=== PATIENT | male | born 1965 | race Caucasian/White ===

== ENCOUNTER 2021-07-19 22:24 | Emergency (ER) | payer BC ==
[~2021-07-19] VITALS: Ht 185.4 cm; Wt 86.2 kg
[2021-07-19] MEDS ORDERED: CLON0.1T PO (23:25)
[2021-07-19 23:32] LABS: *BILIRUBIN,URIN NEGATIVE (NEGATIVE); *BLOOD, URINE NEGATIVE (NEGATIVE); *CLARITY,URINE CLEAR (CLEAR); *COLOR,URINE YELLOW (YELLOW); *KETONES,URINE NEGATIVE (NEGATIVE); *UROBILINOGEN,URINE 0.2 E.U./dl (NORMAL); LEUKOCYTE ESTERASE ,URINE NEGATIVE (NEGATIVE); NITRITE, URINE NEGATIVE (NEGATIVE); UGLUCOSE NEGATIVE (NEGATIVE)
--- NOTE | 2021-07-20 00:09 | NUR ---
Patient discharged to home in stable condition. Written and verbal after care instructions given. Patient verbalizes understanding of instructions. Patient ambulating with steady gait. NAD noted. Stressed follow up or return to ER for worsening s/s.
[2021-07-20 00:10] VITALS: BP 135/92
== END 2021-07-20 00:11 | disposition home or self-care (01) ==
LOC: ER 22:27
DX: R03.0 Elevated blood-pressure reading, without diagnosis of hypertension (principal); F17.210 Nicotine dependence, cigarettes, uncomplicated; E89.0 Postprocedural hypothyroidism; Z90.49 Acquired absence of other specified parts of digestive tract
CPT/HCPCS: 93005; A4663

== ENCOUNTER 2022-05-27 19:59 | Emergency (ER) | payer BC, OTHER ==
[~2022-05-27] VITALS: Ht 188 cm; Wt 86.2 kg
[~2022-05-27 19:59] MED LIST: CLON0.1T PO
--- NOTE | 2022-05-27 20:50 | NUR ---
Pt assisted to bed. Walks steadily. A>Pt's airway is patent. Speaks in full sentences. B>No acute distress. Pt has even C> Skin dry, warm to touch. Placed on a gown and socks and given warm blanket. D>GCS 15/15. Pt speaks Romansh E> No wounds, abrasion or bruises.
[2022-05-27] MEDS ORDERED: KETOROLAC TROMETHAMINE 15 MG INJ IVP ONE (21:00)
[2022-05-27] MEDS ORDERED: ONDANSETRON 4 MG/2 ML VIAL IV ONE (21:00)
[2022-05-27] MEDS ORDERED: IV NORMAL SALINE 1000 ML BAG IV ONE (21:00)
[2022-05-27 21:22] LABS: HEMATOCRIT 44.9 % (36.7-47.1); MEAN CORPUSCULAR HEMOGLOBIN 32.1 uug (23.8-33.4); MEAN CORPUSCULAR VOLUME 91.2 fL (73.0-96.2); PLATELET COUNT (AUTO) 190 K/uL (152-348)
[2022-05-27 21:28] LABS: CREATININE 1.1 mg/dL (0.6-1.3); POTASSIUM 3.7 mmol/L (3.5-5.1)
[2022-05-27 21:35] LABS: BILIRUBIN,DIRECT 0.1 mg/dL (0.0-0.2); BILIRUBIN,TOTAL 0.2 mg/dL (0.2-1.0); TOTAL PROTEIN, SERUM 6.8 g/dL (6.4-8.2)
[2022-05-27 21:36] LABS: *BILIRUBIN,URIN NEGATIVE (NEGATIVE); *BLOOD, URINE NEGATIVE (NEGATIVE); *CLARITY,URINE CLEAR (CLEAR); *KETONES,URINE NEGATIVE (NEGATIVE); *UROBILINOGEN,URINE 0.2 E.U./dl (NORMAL); LEUKOCYTE ESTERASE ,URINE NEGATIVE (NEGATIVE); NITRITE, URINE NEGATIVE (NEGATIVE); PH,URINE 5.5 (5.0-8.0); UGLUCOSE NEGATIVE (NEGATIVE)
[2022-05-27 21:38] LABS: *COLOR,URINE STRAW (YELLOW)
[2022-05-27] MEDS ORDERED: KETOROLAC TROMETHAMINE 60 MG INJ IM ONE ×2 (22:52→23:00)
[2022-05-27] MEDS ORDERED: NAPR-1164 PO (22:58)
[2022-05-27 23:11] VITALS: BP 126/77
== END 2022-05-27 23:12 | disposition home or self-care (01) ==
LOC: ER 19:59
DX: R10.9 Unspecified abdominal pain (principal); F17.210 Nicotine dependence, cigarettes, uncomplicated; I10 Essential (primary) hypertension
CPT/HCPCS: 99284; 74176; 99406; 80076; 80048; 81003; 83690; 85025; 36415; 96372; J1885; A4663

== ENCOUNTER 2022-06-04 03:21 | Emergency (ER) | payer BC, OTHER ==
[~2022-06-04] VITALS: Ht 188 cm; Wt 86.2 kg
[~2022-06-04 03:21] MED LIST changes: +NAPR-1164 PO
--- NOTE | 2022-06-04 04:50 | NUR ---
Dr. Thayer at bedside for MSE.
[2022-06-04] MEDS ORDERED: HYDROMORPHONE 2 MG/1 ML DISP.SYRIN ONE (04:58)
[2022-06-04] MEDS ORDERED: OXYC-128 PO (05:00)
[2022-06-04] MEDS ORDERED: HYDROMORPHONE 1 MG/1 ML DISP.SYRIN IM ONE (05:00)
[2022-06-04 05:04] VITALS: BP 146/80
--- NOTE | 2022-06-04 05:04 | NUR ---
Patient discharged to home in stable condition. Written and verbal after care instructions given. Patient verbalizes understanding of instructions. Stressed follow up or return to ER for worsening s/s. Patient out of ER with steady gait, no acute signs of distress, VSS, all belongings taken, instructed not to drive, will uber home.
== END 2022-06-04 05:05 | disposition home or self-care (01) ==
LOC: ER 03:24
DX: M53.3 Sacrococcygeal disorders, not elsewhere classified (principal); E89.0 Postprocedural hypothyroidism; F17.210 Nicotine dependence, cigarettes, uncomplicated; F43.10 Post-traumatic stress disorder, unspecified; Z90.49 Acquired absence of other specified parts of digestive tract
CPT/HCPCS: 99283; 96372; J1170; A4663

== ENCOUNTER 2022-08-28 01:38 | Emergency (ER) | payer BC, OTHER ==
[~2022-08-28] VITALS: Ht 185.4 cm; Wt 86.2 kg
[~2022-08-28 01:38] MED LIST changes: +OXYC-128 PO
--- NOTE | 2022-08-28 01:59 | NUR ---
Patient ambulatory with a steady gait. NAD noted. A/O x4.
--- NOTE | 2022-08-28 03:05 | NUR ---
Patient did not want V/S taken prior to dc.
--- NOTE | 2022-08-28 03:05 | NUR ---
Patient discharged to home in stable condition. A/O x4. NAD noted. All belongings with patient. Written and verbal after care instructions given. Patient verbalizes understanding of instructions. Stressed follow up or return to ER for worsening s/s.
[2022-08-28 03:10] VITALS: BP 130/97
[2022-08-28 03:18] LABS: *BILIRUBIN,URIN NEGATIVE (NEGATIVE); *CLARITY,URINE CLEAR (CLEAR); *COLOR,URINE YELLOW (YELLOW); *KETONES,URINE NEGATIVE (NEGATIVE); *UROBILINOGEN,URINE 0.2 E.U./dl (NORMAL); LEUKOCYTE ESTERASE ,URINE NEGATIVE (NEGATIVE); NITRITE, URINE NEGATIVE (NEGATIVE); UGLUCOSE NEGATIVE (NEGATIVE)
[2022-08-28 03:24] LABS: *BLOOD, URINE TRACE (NEGATIVE)
[2022-08-28 06:45] LABS: BACTERIA,URINE NONE SEEN /HPF (NONE SEEN); RBC,URINE 0-3 /HPF (0-3); SQUAMOUS EPITHELIAL CELL,UR FEW /HPF (NONE SEEN); WBC,URINE 0-3 /HPF (0-3)
== END 2022-08-28 03:05 | disposition home or self-care (01) ==
LOC: ER 01:39
DX: I10 Essential (primary) hypertension (principal); E89.0 Postprocedural hypothyroidism; F43.10 Post-traumatic stress disorder, unspecified; F17.210 Nicotine dependence, cigarettes, uncomplicated
CPT/HCPCS: A4663

== ENCOUNTER 2023-02-15 23:15 | Emergency (ER) | payer BC, OTHER ==
[~2023-02-15] VITALS: Ht 185.4 cm; Wt 88.5 kg
--- NOTE | 2023-02-16 00:30 | NUR ---
PT AMB TO RM 3 WITH C/O URINATION MULTIPLE TIMES, 8 X IN 4 HRS.
[2023-02-16] MEDS ORDERED: IRBE300T19 PO (00:33)
[2023-02-16] MEDS ORDERED: AMLO10TA59 PO (00:35)
[2023-02-16] MEDS ORDERED: ROSU10TA2 GT (00:35)
[2023-02-16 01:17] LABS: MEAN CORPUSCULAR HEMOGLOBIN 31.7 uug (23.8-33.4); MEAN CORPUSCULAR VOLUME 91.8 fL (73.0-96.2); PLATELET COUNT (AUTO) 218 K/uL (152-348)
--- NOTE | 2023-02-16 01:30 | NUR ---
H/L #20, PLACED IN L AC.
[2023-02-16 01:44] LABS: CREATININE 1.2 mg/dL (0.6-1.3); MAGNESIUM 2.1 mg/dL (1.8-2.4); POTASSIUM 3.6 mmol/L (3.5-5.1)
[2023-02-16 01:48] LABS: *BILIRUBIN,URIN NEGATIVE (NEGATIVE); *BLOOD, URINE NEGATIVE (NEGATIVE); *CLARITY,URINE CLEAR (CLEAR); *COLOR,URINE YELLOW (YELLOW); *KETONES,URINE NEGATIVE (NEGATIVE); *UROBILINOGEN,URINE 0.2 E.U./dl (NORMAL); LEUKOCYTE ESTERASE ,URINE NEGATIVE (NEGATIVE); NITRITE, URINE NEGATIVE (NEGATIVE); PH,URINE 6.5 (5.0-8.0); UGLUCOSE NEGATIVE (NEGATIVE)
[2023-02-16] MEDS ORDERED: IOHEXOL 300MG/ML 100 ML INFUS..BTL ONE (02:18)
[2023-02-16] MEDS ORDERED: SWABABLE VALVE TRANSFER SET EA MC ONE (02:18)
[2023-02-16] MEDS ORDERED: IV NORMAL SALINE 250 ML IV ONE (02:19)
--- NOTE | 2023-02-16 03:00 | NUR ---
PT TAKEN TO CT.
--- NOTE | 2023-02-16 03:40 | NUR ---
PT'S IV D/C'D, SITE C/D/I.
[2023-02-16] MEDS ORDERED: HYDR-3980 PO (05:22)
--- NOTE | 2023-02-16 05:30 | NUR ---
PT A,A AND O X 4 WITH NO C/O PAIN AND NAD OBSERVED.Patient discharged to home in stable condition. Written and verbal after care instructions given. Patient verbalizes understanding of instructions. Stressed follow up or return to ER for worsening s/s. PT AMB OUT WITH STEADY GAIT.
[2023-02-16 05:39] VITALS: BP 121/74
== END 2023-02-16 05:30 | disposition home or self-care (01) ==
LOC: ER 23:20
DX: R10.9 Unspecified abdominal pain (principal); R31.9 Hematuria, unspecified; F17.210 Nicotine dependence, cigarettes, uncomplicated; Z79.899 Other long term (current) drug therapy
CPT/HCPCS: 99285; 74177; 80048; 81003; 83735; 85025; 36415; Q9967; A4663

== ENCOUNTER 2023-10-17 18:55 | Emergency (ER) | payer BC, OTHER ==
[~2023-10-17 18:55] MED LIST changes: +AMLO10TA59 PO; +HYDR-3980 PO; +IRBE300T19 PO; +ROSU10TA2 GT
== END 2023-10-17 21:00 | disposition left against medical advice (07) ==
LOC: ER 18:57
DX: Z53.21 Procedure and treatment not carried out due to patient leaving prior to being seen by health care provider (principal)

== ENCOUNTER 2024-03-19 19:00 | Emergency (ER) | payer OTHER ==
[~2024-03-19] VITALS: Ht 185.4 cm; Wt 88.5 kg
[2024-03-19] MEDS ORDERED: BACL10TA PO (19:15)
[2024-03-19] MEDS ORDERED: GABA-532 PO (19:15)
[2024-03-19] MEDS ORDERED: VALS160T2 PO (19:15)
[2024-03-19] MEDS ORDERED: LEVO100T10 PO (19:15)
[2024-03-19] MEDS ORDERED: ALFU10TA10 PO (19:15)
[2024-03-19] MEDS ORDERED: AMLO-212 PO (19:15)
[2024-03-19 20:11] LABS: BASOPHILS % (AUTO) 0.5 % (0.0-2.0); EOSINOPHILS # (AUTO) 0.1 K/uL (0.0-0.7); EOSINOPHILS % (AUTO) 1.3 % (0.0-7.0); HEMATOCRIT 42.5 % (36.7-47.1); HEMOGLOBIN 14.8 g/dL (12.5-16.3); MEAN CORPUSCULAR HEMOGLOBIN 31.8 uug (23.8-33.4); MEAN CORPUSCULAR HGB CONC 35 g/dL (32.5-36.3); MEAN CORPUSCULAR VOLUME 91.4 fL (73.0-96.2); MONOCYTES # (AUTO) 0.6 K/uL (0.1-1.30); MONOCYTES % (AUTO) 6.2 % (0.0-11.0); NEUTROPHILS # (AUTO) 7.5 K/uL (1.8-8.9); PLATELET COUNT (AUTO) 178 K/uL (152-348); RED BLOOD CELL COUNT(AUTO) 4.65 MIL/uL (4.06-5.63); RED CELL DISTRIBUTION WIDTH 12.6 % (12.1-16.2); WHITE BLOOD COUNT (AUTO) 10.3 K/uL (3.6-10.2)
[2024-03-19] MEDS: IV NS 1000 ML 1,000 ML IV ONE (20:17)
[2024-03-19 20:28] LABS: DIFFERENTIAL COMMENT 1
[2024-03-19 20:32] LABS: CALCIUM 9.3 mg/dL (8.5-10.1); CARBON DIOXIDE 30 mmol/L (21-32); CHLORIDE 103 mmol/L (98-107); CREATININE 1.2 mg/dL (0.6-1.3); GLUCOSE 112 mg/dL (74-106); POTASSIUM 3.5 mmol/L (3.5-5.1); SODIUM SERUM 142 mmol/L (136-145); UREA NITROGEN, BLOOD 17 mg/dL (7-18)
[2024-03-19 20:46] LABS: ALANINE AMINOTRANSFERASE 29 U/L (16-63); ALBUMIN 3.5 g/dL (3.4-5.0); ALKALINE PHOSPHATASE 72 U/L (50-136); ASPARTATE AMINOTRANSFERASE < 5 U/L (15-37); BILIRUBIN,TOTAL 0.4 mg/dL (0.2-1.0); NT-PRO BNP 62 pg/mL (0-125); TOTAL PROTEIN, SERUM 6.7 g/dL (6.4-8.2)
[2024-03-19 22:00] VITALS: BP 118/71; TEMP 98.6; O2SAT 99
== END 2024-03-19 22:01 | disposition home or self-care (01) ==
LOC: ER 19:02
DX: R42 Dizziness and giddiness (principal); R06.02 Shortness of breath; T44.8X5A Adverse effect of centrally-acting and adrenergic-neuron-blocking agents, initial encounter; R07.89 Other chest pain; F17.210 Nicotine dependence, cigarettes, uncomplicated; Z90.89 Acquired absence of other organs; Z79.899 Other long term (current) drug therapy; Y92.89 Other specified places as the place of occurrence of the external cause
CPT/HCPCS: 99285; 96360; 71045; 80053; 83880; 85025; 85379; 84484; 36415; 93005; 83605; J7040; A4606; A4663

== ENCOUNTER 2024-04-02 21:09 | Emergency (ER) | payer OTHER ==
[~2024-04-02] VITALS: Ht 177.8 cm; Wt 83.9 kg
[~2024-04-02 21:09] MED LIST changes: +ALFU10TA10 PO; +AMLO-212 PO; -AMLO10TA59 PO; +BACL10TA PO; -CLON0.1T PO; +GABA-532 PO; -HYDR-3980 PO; -IRBE300T19 PO; +LEVO100T10 PO; -NAPR-1164 PO; -OXYC-128 PO; -ROSU10TA2 GT; +VALS160T2 PO
[2024-04-02 21:22] VITALS: O2SAT 98
== END 2024-04-02 21:50 | disposition left against medical advice (07) ==
LOC: ER 21:23
DX: I10 Essential (primary) hypertension (principal); Z53.21 Procedure and treatment not carried out due to patient leaving prior to being seen by health care provider; F17.200 Nicotine dependence, unspecified, uncomplicated; Z90.49 Acquired absence of other specified parts of digestive tract; Z79.899 Other long term (current) drug therapy; Z60.2 Problems related to living alone
CPT/HCPCS: A4606; A4663

== ENCOUNTER 2024-04-03 19:41 | Emergency (ER) | payer OTHER ==
[~2024-04-03] VITALS: Ht 185.4 cm; Wt 86.6 kg
[2024-04-03 20:33] LABS: BASOPHILS # (AUTO) 0.1 K/UL (0.0-0.2); BASOPHILS % (AUTO) 0.7 % (0.0-2.0); EOSINOPHILS # (AUTO) 0.1 K/uL (0.0-0.7); EOSINOPHILS % (AUTO) 1.9 % (0.0-7.0); HEMATOCRIT 44.8 % (36.7-47.1); HEMOGLOBIN 15.6 g/dL (12.5-16.3); LYMPHOCYTES # (AUTO) 1.6 K/uL (0.8-4.8); LYMPHOCYTES % (AUTO) 20.3 % (20.5-51.5); MEAN CORPUSCULAR HEMOGLOBIN 32.1 uug (23.8-33.4); MEAN CORPUSCULAR HGB CONC 35 g/dL (32.5-36.3); MEAN CORPUSCULAR VOLUME 91.9 fL (73.0-96.2); MONOCYTES # (AUTO) 0.5 K/uL (0.1-1.30); MONOCYTES % (AUTO) 6.2 % (0.0-11.0); NEUTROPHILS # (AUTO) 5.5 K/uL (1.8-8.9); NEUTROPHILS % (AUTO) 70.9 % (38.5-71.5); PLATELET COUNT (AUTO) 186 K/uL (152-348); RED BLOOD CELL COUNT(AUTO) 4.87 MIL/uL (4.06-5.63); RED CELL DISTRIBUTION WIDTH 12.5 % (12.1-16.2); WHITE BLOOD COUNT (AUTO) 7.8 K/uL (3.6-10.2)
[2024-04-03 20:35] LABS: DIFFERENTIAL COMMENT 1
[2024-04-03 20:42] LABS: CALCIUM 9.8 mg/dL (8.5-10.1); CREATININE 1.4 mg/dL (0.6-1.3); POTASSIUM 3.9 mmol/L (3.5-5.1)
[2024-04-03 20:48] LABS: ALBUMIN 3.8 g/dL (3.4-5.0); BILIRUBIN,TOTAL 0.3 mg/dL (0.2-1.0); TOTAL PROTEIN, SERUM 7.4 g/dL (6.4-8.2)
[2024-04-03 21:30] VITALS: BP 143/93; TEMP 97.9; O2SAT 98
== END 2024-04-03 21:25 | disposition home or self-care (01) ==
LOC: ER 19:42
DX: I10 Essential (primary) hypertension (principal); F17.210 Nicotine dependence, cigarettes, uncomplicated; Z79.899 Other long term (current) drug therapy
CPT/HCPCS: 36415; 85025; 93005; A4606; A4663

== ENCOUNTER 2024-06-17 16:15 | Emergency (ER) | payer OTHER ==
[~2024-06-17] VITALS: Ht 182.9 cm; Wt 89.8 kg
[2024-06-17] MEDS: IV NORMAL SALINE 1000 ML BAG IV ONE (16:30)
[2024-06-17] MEDS ORDERED: MAGN500C16 PO (16:44)
[2024-06-17] MEDS ORDERED: SAW1CAPS PO (16:44)
[2024-06-17] MEDS ORDERED: TOLT4CAP PO (16:44)
[2024-06-17] MEDS ORDERED: IBUP-2314 PO (16:44)
[2024-06-17] MEDS ORDERED: PHEN-895 PO (16:44)
[2024-06-17 16:58] LABS: BASOPHILS % (AUTO) 0.4 % (0.0-2.0); EOSINOPHILS # (AUTO) 0.1 K/uL (0.0-0.7); EOSINOPHILS % (AUTO) 1.4 % (0.0-7.0); HEMATOCRIT 46.7 % (36.7-47.1); HEMOGLOBIN 16.1 g/dL (12.5-16.3); LYMPHOCYTES # (AUTO) 1.7 K/uL (0.8-4.8); LYMPHOCYTES % (AUTO) 24.2 % (20.5-51.5); MEAN CORPUSCULAR HEMOGLOBIN 31.3 uug (23.8-33.4); MEAN CORPUSCULAR HGB CONC 34 g/dL (32.5-36.3); MONOCYTES # (AUTO) 0.4 K/uL (0.1-1.30); MONOCYTES % (AUTO) 6.6 % (0.0-11.0); NEUTROPHILS # (AUTO) 4.6 K/uL (1.8-8.9); NEUTROPHILS % (AUTO) 67.4 % (38.5-71.5); PLATELET COUNT (AUTO) 181 K/uL (152-348); RED BLOOD CELL COUNT(AUTO) 5.13 MIL/uL (4.06-5.63); RED CELL DISTRIBUTION WIDTH 12.5 % (12.1-16.2); WHITE BLOOD COUNT (AUTO) 6.8 K/uL (3.6-10.2)
[2024-06-17 17:09] LABS: CALCIUM 9.5 mg/dL (8.5-10.1); CARBON DIOXIDE 28 mmol/L (21-32); CHLORIDE 105 mmol/L (98-107); CREATININE 1.2 mg/dL (0.6-1.3); GLUCOSE 144 mg/dL (74-106); POTASSIUM 3.8 mmol/L (3.5-5.1); SODIUM SERUM 142 mmol/L (136-145); UREA NITROGEN, BLOOD 19 mg/dL (7-18)
[2024-06-17 17:17] LABS: ALANINE AMINOTRANSFERASE 25 U/L (16-63); ALBUMIN 3.7 g/dL (3.4-5.0); ALKALINE PHOSPHATASE 61 U/L (50-136); ASPARTATE AMINOTRANSFERASE 8 U/L (15-37); BILIRUBIN,DIRECT 0.1 mg/dL (0.0-0.2); BILIRUBIN,TOTAL 0.5 mg/dL (0.2-1.0); TOTAL PROTEIN, SERUM 6.8 g/dL (6.4-8.2)
[2024-06-17 18:05] LABS: *BILIRUBIN,URIN NEGATIVE (NEGATIVE); *BLOOD, URINE NEGATIVE (NEGATIVE); *CLARITY,URINE CLEAR (CLEAR); *COLOR,URINE YELLOW (YELLOW); *KETONES,URINE NEGATIVE (NEGATIVE); *PROTEIN,URINE NEGATIVE (NEGATIVE); *UROBILINOGEN,URINE 0.2 E.U./dl (NORMAL); LEUKOCYTE ESTERASE ,URINE NEGATIVE (NEGATIVE); NITRITE, URINE NEGATIVE (NEGATIVE); PH,URINE 6.5 (5.0-8.0); UGLUCOSE NEGATIVE (NEGATIVE)
[2024-06-17 19:06] VITALS: BP 120/78; O2SAT 97
== END 2024-06-17 19:07 | disposition home or self-care (01) ==
LOC: ER 16:16
DX: N40.1 Benign prostatic hyperplasia with lower urinary tract symptoms (principal); R33.9 Retention of urine, unspecified; R53.83 Other fatigue; F17.200 Nicotine dependence, unspecified, uncomplicated; Z90.49 Acquired absence of other specified parts of digestive tract; Z79.1 Long term (current) use of non-steroidal anti-inflammatories (NSAID); Z79.899 Other long term (current) drug therapy; Z60.2 Problems related to living alone
CPT/HCPCS: 99285; 96360; 71045; 80076; 80048; 81003; 84443; 85025; 84484; 36415; 93005; J7040; A4606; A4663

== ENCOUNTER 2025-05-24 04:47 | Emergency (ER) | payer OTHER ==
[~2025-05-24] VITALS: Ht 185.4 cm; Wt 88.5 kg
[~2025-05-24 04:47] MED LIST changes: -ALFU10TA10 PO; -AMLO-212 PO; -BACL10TA PO; +IBUP-2314 PO; +MAGN500C16 PO; +PHEN-895 PO; +SAW1CAPS PO; +TOLT4CAP PO
[2025-05-24 04:51] VITALS: BP 136/94
[2025-05-24] MEDS ORDERED: KETOROLAC TROMETHAMINE 30 MG INJ ONE ×2 (05:47→08:53)
[2025-05-24 05:50] LABS: *BILIRUBIN,URIN NEGATIVE (NEGATIVE); *CLARITY,URINE CLEAR (CLEAR); *COLOR,URINE YELLOW (YELLOW); *KETONES,URINE NEGATIVE (NEGATIVE); *PROTEIN,URINE NEGATIVE (NEGATIVE); *UROBILINOGEN,URINE 0.2 E.U./dl (NORMAL); LEUKOCYTE ESTERASE ,URINE NEGATIVE (NEGATIVE); NITRITE, URINE NEGATIVE (NEGATIVE); UGLUCOSE NEGATIVE (NEGATIVE)
[2025-05-24] MEDS: KETOROLAC TROMETHAMINE 30 MG INJ IM ONE (05:50)
[2025-05-24 06:06] LABS: *BLOOD, URINE TRACE (NEGATIVE)
[2025-05-24 06:07] LABS: SQUAMOUS EPITHELIAL CELL,UR NONE SEEN /HPF (NONE SEEN)
[2025-05-24 07:12] LABS: PLATELET COUNT (AUTO) 171 K/uL (152-348); RED BLOOD CELL COUNT(AUTO) 4.95 MIL/uL (4.06-5.63); RED CELL DISTRIBUTION WIDTH 12.7 % (12.1-16.2); WHITE BLOOD COUNT (AUTO) 6.1 K/uL (3.6-10.2)
[2025-05-24 07:26] LABS: ASPARTATE AMINOTRANSFERASE 7 U/L (15-37); CREATININE 1.4 mg/dL (0.6-1.3); SODIUM SERUM 141 mmol/L (136-145); TOTAL PROTEIN, SERUM 6.8 g/dL (6.4-8.2); UREA NITROGEN, BLOOD 20 mg/dL (7-18)
[2025-05-24] MEDS ORDERED: HYDROMORPHONE 1 MG/1 ML DISP.SYRIN ONE (08:53)
[2025-05-24] MEDS ORDERED: METHOCARBAMOL 500 MG TABLET ONE (08:53)
[2025-05-24] MEDS ORDERED: ONDANSETRON 4 MG/2 ML VIAL ONE (08:53)
[2025-05-24] MEDS: ONDANSETRON 4 MG/2 ML VIAL IV ONE (09:05)
[2025-05-24] MEDS: HYDROMORPHONE 1 MG/1 ML DISP.SYRIN IV ONE (09:05)
[2025-05-24] MEDS: KETOROLAC TROMETHAMINE 30 MG INJ IVP ONE (09:06)
[2025-05-24] MEDS: METHOCARBAMOL 500 MG TABLET PO ONE (09:06)
[2025-05-24] MEDS ORDERED: ACET1TAB23 PO (12:11)
[2025-05-24] MEDS ORDERED: METH-807 PO (12:11)
[2025-05-24 13:10] VITALS: BP 125/84; TEMP 98; O2SAT 98
== END 2025-05-24 12:17 | disposition home or self-care (01) ==
LOC: ER 04:50
DX: M54.50 Low back pain, unspecified (principal); R10.9 Unspecified abdominal pain; N40.0 Benign prostatic hyperplasia without lower urinary tract symptoms; F17.210 Nicotine dependence, cigarettes, uncomplicated; F90.9 Attention-deficit hyperactivity disorder, unspecified type; Z79.899 Other long term (current) drug therapy; Z90.89 Acquired absence of other organs; Z60.2 Problems related to living alone
CPT/HCPCS: 36415; 83690; 84484; 85025; 85651; 85730; A4606; A4663; J1171; J1885; J2405

== ENCOUNTER 2025-06-05 12:20 | Emergency (ER) | payer OTHER ==
[~2025-06-05] VITALS: Ht 185.4 cm; Wt 88.5 kg
[~2025-06-05 12:20] MED LIST changes: +ACET1TAB23 PO; +METH-807 PO
[2025-06-05 12:53] LABS: PLATELET COUNT (AUTO) 190 K/uL (152-348); RED BLOOD CELL COUNT(AUTO) 5.10 MIL/uL (4.06-5.63); RED CELL DISTRIBUTION WIDTH 12.6 % (12.1-16.2); WHITE BLOOD COUNT (AUTO) 5.8 K/uL (3.6-10.2)
[2025-06-05] MEDS ORDERED: ONDANSETRON 4 MG/2 ML VIAL ONE (12:53)
[2025-06-05] MEDS ORDERED: MORPHINE SULFATE 4 MG/1 ML DISP.SYRIN ONE (12:54)
[2025-06-05] MEDS: MORPHINE SULFATE 2 MG/1 ML DISP.SYRIN IV ONE (12:58)
[2025-06-05] MEDS: ONDANSETRON 4 MG/2 ML VIAL IV ONE (12:58)
[2025-06-05 13:02] LABS: CREATININE 1.3 mg/dL (0.6-1.3); SODIUM SERUM 147 mmol/L (136-145); UREA NITROGEN, BLOOD 18 mg/dL (7-18)
[2025-06-05 13:08] LABS: ASPARTATE AMINOTRANSFERASE 6 U/L (15-37); TOTAL PROTEIN, SERUM 7.0 g/dL (6.4-8.2)
[2025-06-05 13:30] VITALS: BP 131/69
[2025-06-05 13:32] LABS: *BILIRUBIN,URIN NEGATIVE (NEGATIVE); *BLOOD, URINE NEGATIVE (NEGATIVE); *CLARITY,URINE CLEAR (CLEAR); *COLOR,URINE YELLOW (YELLOW); *KETONES,URINE NEGATIVE (NEGATIVE); *PROTEIN,URINE NEGATIVE (NEGATIVE); *UROBILINOGEN,URINE 0.2 E.U./dl (NORMAL); LEUKOCYTE ESTERASE ,URINE NEGATIVE (NEGATIVE); NITRITE, URINE NEGATIVE (NEGATIVE); UGLUCOSE NEGATIVE (NEGATIVE)
[2025-06-05] MEDS ORDERED: ACET1TAB23 PO (14:46)
[2025-06-05 14:57] VITALS: BP 124/72; TEMP 98; O2SAT 97
== END 2025-06-05 15:01 | disposition home or self-care (01) ==
LOC: ER 12:20
DX: R10.11 Right upper quadrant pain (principal); E03.9 Hypothyroidism, unspecified; F17.210 Nicotine dependence, cigarettes, uncomplicated; I10 Essential (primary) hypertension; N40.0 Benign prostatic hyperplasia without lower urinary tract symptoms; F90.9 Attention-deficit hyperactivity disorder, unspecified type; Z79.899 Other long term (current) drug therapy; Z90.49 Acquired absence of other specified parts of digestive tract; Z90.89 Acquired absence of other organs; Z60.2 Problems related to living alone
CPT/HCPCS: 99285; 74176; 96374; 71045; 96375; 80076; 80048; 81003; 83690; 85025; 85730; 84484; 36415; J2405; J2270; A4606; A4663

== ENCOUNTER 2025-07-20 22:06 | Emergency (ER) | payer OTHER ==
[~2025-07-20] VITALS: Ht 188 cm; Wt 88.5 kg
[2025-07-20 22:59] VITALS: BP 128/94
[2025-07-20] MEDS ORDERED: ACETAMINOPHEN 500 MG TABLET ONE (23:45)
[2025-07-20] MEDS ORDERED: ONDANSETRON ODT 4 MG TAB.RAPDIS ONE (23:45)
[2025-07-20] MEDS: ONDANSETRON ODT 4 MG TAB.RAPDIS SL ONE (23:51)
[2025-07-20] MEDS: ACETAMINOPHEN 500 MG TABLET PO ONE (23:51)
[2025-07-20 23:55] LABS: PLATELET COUNT (AUTO) 175 K/uL (152-348); RED BLOOD CELL COUNT(AUTO) 4.84 MIL/uL (4.06-5.63); RED CELL DISTRIBUTION WIDTH 12.7 % (12.1-16.2); WHITE BLOOD COUNT (AUTO) 6.0 K/uL (3.6-10.2)
[2025-07-21 00:03] LABS: CREATININE 1.1 mg/dL (0.6-1.3); SODIUM SERUM 143.0 mmol/L (136-145); UREA NITROGEN, BLOOD 17.0 mg/dL (7-18)
[2025-07-21 00:09] LABS: ASPARTATE AMINOTRANSFERASE 15.0 U/L (15-37); TOTAL PROTEIN, SERUM 6.5 g/dL (6.4-8.2)
[2025-07-21] MEDS ORDERED: POTASSIUM CHLORIDE 20 MEQ TAB.PRT.SR ONE (00:19)
[2025-07-21] MEDS: POTASSIUM CHLORIDE 20 MEQ TAB.PRT.SR PO ONE (00:21)
[2025-07-21 00:31] VITALS: BP 128/94; TEMP 98; O2SAT 98
== END 2025-07-21 00:31 | disposition home or self-care (01) ==
LOC: ER 22:06
DX: R51.9 Headache, unspecified (principal); K52.9 Noninfective gastroenteritis and colitis, unspecified; R11.0 Nausea; E87.6 Hypokalemia; F17.200 Nicotine dependence, unspecified, uncomplicated; Z79.890 Hormone replacement therapy; Z79.899 Other long term (current) drug therapy; Z90.49 Acquired absence of other specified parts of digestive tract; Z90.89 Acquired absence of other organs
CPT/HCPCS: 36415; 83690; 85025; A4606; A4663; A9150; Q0162

== ENCOUNTER 2025-09-30 23:16 | Emergency (ER) | payer OTHER ==
[~2025-09-30] VITALS: Ht 188 cm; Wt 88.5 kg
[~2025-09-30 23:16] MED LIST changes: -ACET1TAB23 PO; +ACET1TAB93 PO; -MAGN500C16 PO; +MAGN500C4 PO
[2025-09-30] MEDS ORDERED: FAMOTIDINE. 20 MG/2 ML VIAL IV ONE (23:51)
[2025-09-30] MEDS ORDERED: ONDANSETRON 4 MG/2 ML VIAL ONE (23:51)
[2025-09-30 23:52] LABS: PLATELET COUNT (AUTO) 182 K/uL (152-348); RED BLOOD CELL COUNT(AUTO) 5.12 MIL/uL (4.06-5.63); RED CELL DISTRIBUTION WIDTH 12.5 % (12.1-16.2); WHITE BLOOD COUNT (AUTO) 5.9 K/uL (3.6-10.2)
[2025-09-30] MEDS: IV NORMAL SALINE 1000 ML BAG IV ONE (23:57)
[2025-09-30] MEDS: FAMOTIDINE. 20 MG/2 ML VIAL IV ONE (23:57)
[2025-09-30] MEDS: ONDANSETRON 4 MG/2 ML VIAL IV ONE (23:57)
[2025-09-30 23:59] LABS: *BILIRUBIN,URIN NEGATIVE (NEGATIVE); *BLOOD, URINE NEGATIVE (NEGATIVE); *CLARITY,URINE CLEAR (CLEAR); *COLOR,URINE LIGHT YELLOW (YELLOW); *KETONES,URINE NEGATIVE (NEGATIVE); *PROTEIN,URINE NEGATIVE (NEGATIVE); *UROBILINOGEN,URINE 0.2 E.U./dl (NORMAL); LEUKOCYTE ESTERASE ,URINE NEGATIVE (NEGATIVE); NITRITE, URINE NEGATIVE (NEGATIVE); UGLUCOSE NEGATIVE (NEGATIVE)
[2025-10-01 00:01] LABS: CREATININE 1.0 mg/dL (0.6-1.3); SODIUM SERUM 141.0 mmol/L (136-145); UREA NITROGEN, BLOOD 18.0 mg/dL (7-18)
[2025-10-01 00:06] LABS: ASPARTATE AMINOTRANSFERASE 15.0 U/L (15-37); TOTAL PROTEIN, SERUM 7.0 g/dL (6.4-8.2)
[2025-10-01] MEDS: KETOROLAC TROMETHAMINE 15 MG INJ IVP ONE (00:58)
[2025-10-01 03:25] VITALS: BP 128/72
[2025-10-01] MEDS ORDERED: ONDA-243 PO (04:35)
[2025-10-01] MEDS ORDERED: FAMO-132 PO (04:35)
[2025-10-01 04:42] VITALS: BP 120/70; TEMP 98.2; O2SAT 99
== END 2025-10-01 04:43 | disposition home or self-care (01) ==
LOC: ER 23:23
DX: R10.9 Unspecified abdominal pain (principal); R11.2 Nausea with vomiting, unspecified; K20.90 Esophagitis, unspecified without bleeding; I10 Essential (primary) hypertension; E03.9 Hypothyroidism, unspecified; F17.200 Nicotine dependence, unspecified, uncomplicated; Z79.890 Hormone replacement therapy; Z79.899 Other long term (current) drug therapy; Z90.49 Acquired absence of other specified parts of digestive tract; Z90.89 Acquired absence of other organs
CPT/HCPCS: 99285; 96374; 96375; 96361; 80076; 80048; 81003; 83690; 85025; 36415; 74176; J1308; J2405; J1885; J7040; A4606; A4663